=== PATIENT | male | born 2000 | race African-American/Black ===

== ENCOUNTER 2020-04-05 17:57 | Emergency (ER) | payer MEDICAID, OTHER ==
[~2020-04-05] VITALS: Ht 172.7 cm; Wt 70.0 kg
[2020-04-05] MEDS ORDERED: ONDANSETRON HCL 4MG/2ML INJ IV STA (18:00)
[2020-04-05] MEDS ORDERED: MORPHINE SULFATE 4 MG/ML CPJ (NOT FOR IM USE) IV STA (18:00)
[2020-04-05] MEDS ORDERED: SODIUM CHLORIDE 0.9% 1,000 ML IV ONE (18:00)
[2020-04-05] MEDS ORDERED: CEFAZOLIN 1000MG PREMIX 50 ML IV ONE (18:00)
[2020-04-05] MEDS ORDERED: TETANUS, DIPHTHERIA, PERTUSSIS VAC/PF 0.5ML (>7YR OLD) IM ONE (18:15)
[2020-04-05 18:17] VITALS: BP 92/62
== END 2020-04-05 18:44 | disposition short-term general hospital (02) ==
LOC: ER 17:57
DX: S81.032A Puncture wound without foreign body, left knee, initial encounter (principal); S81.031A Puncture wound without foreign body, right knee, initial encounter; W33.01XA Accidental discharge of shotgun, initial encounter; Y93.89 Activity, other specified; Y92.89 Other specified places as the place of occurrence of the external cause; Y99.8 Other external cause status
CPT/HCPCS: 71045; 72170; 73562; 74018; 76705; 90471; 90715; 96374; 96375; 99291; J0690; J2270; J2405; J7030